=== PATIENT | female | born 1985 | race Caucasian/White ===

== ENCOUNTER 2023-06-02 09:19 | Emergency (ER) | payer OTHER, SELFPAY ==
[2023-06-02 09:42] VITALS: BP 116/86; PULSE 115; RESP 16; TEMP 36.9; O2SAT 100
--- NOTE | 2023-06-02 09:45 | ED.FEMALEGU ---
HPI - Female Genitourinary General Chief complaint: Urogenital-Female Stated complaint: uti Time Seen by Provider: 06/02/23 09:46 Source: patient and RN notes reviewed Mode of arrival: ambulatory Limitations: no limitations History of Present Illness HPI Narrative: 37-year-old female presents with concern for ongoing frequency, urgency. Reports she does finished Macrobid that she was prescribed during a telehealth visit for urinary tract infection. She reports most for symptoms have resolved but she continues to have urgency and frequency. She reports she had some back pain yesterday. She denies abdominal pain, nausea, vomiting, fever, chills. She reports history of frequent UTIs. MD elicited complaint: UTI Related Data Allergies Allergy/AdvReac Type Severity Reaction Status Date / Time No Known Allergies Allergy Verified 06/02/23 09:57 Review of Systems Review of Systems: CONSTITUTIONAL: Denies malaise, chills, sweats, or fever. CARDIOVASCULAR: Denies chest pain, palpitations, or edema. RESPIRATORY: Denies cough or dyspnea. GASTROINTESTINAL: Denies abdominal pain, nausea, vomiting, diarrhea GENITOURINARY: Reports frequency, urgency. Denies dysuria, suprapubic pressure. Denies flank pain or hematuria. SKIN: Denies rash or itching. MUSCULOSKELETAL: Denies back pain or myalgia. All systems reviewed & are unremarkable except as noted in HPI and below PMFSH Comments At time of signature, agree with nursing past medical, surgical, social and family history. There is no relevant family history pertinent to the presenting complaint Exam Narrative: GENERAL: Well-appearing, well-nourished, and in no acute distress. HEAD: Normocephalic. EYES: PERRLA, conjunctivae clear. NECK: Supple. No lymphadenopathy CHEST: Clear to auscultation. No respiratory distress. HEART: Regular rate and rhythm. ABDOMEN: Soft, nontender upon palpation, nondistended, normal active bowel sounds, no palpable or pulsatile masses, no guarding. No CVA tenderness SKIN: Warm, dry, no rash. NEURO: Alert and oriented x3. PSYCH: Normal mood and affect Course Course Emergency Course: Discussed culture ring urine, discussed waiting for culture results to start antibiotic versus start antibiotic pending culture results. Patient would prefer to start antibiotic now and understands she can stop the antibiotic if her culture is negative Patient is aware of, understands and agrees to treatment plan. Anticipatory guidance given. Patient agrees to follow-up as directed and is aware of reasons to seek care at the emergency department. Portions of this record may have been created with voice recognition software Level of Care: Express Care Visit Vital Signs Vital signs: Vital Signs Temperature 98.5 F 06/02/23 09:42 Pulse Rate 115 H 06/02/23 09:42 Respiratory Rate 16 06/02/23 09:42 Blood Pressure 116/86 06/02/23 09:42 Pulse Oximetry 100 06/02/23 09:42 Temperature 98.5 F 06/02/23 09:42 Pulse Rate 115 H 06/02/23 09:42 Respiratory Rate 16 06/02/23 09:42 Blood Pressure 116/86 06/02/23 09:42 Pulse Oximetry 100 06/02/23 09:42 Reviewed. MDM - Female Genitourinary MDM Narrative Medical decision making narrative: Exam findings and UA show no acute concerns or changes; patient is non-toxic appearing and is in no distress. Patient is appropriate for outpatient treatment and follow-up. Differential Diagnosis Differential diagnosis: Likely urinary tract infection and cystitis Critical Care Time Critical Care Time Critical Care Time: No Discharge Plan Discharge Clinical Impression: Symptoms of urinary tract infection Patient Disposition: Home, Self-Care Condition: Stable Instructions: Antibiotic Form, Urinary Tract Infection in Women (ED), Urinary Tract Infection in (ED) Additional Instructions: We will send a urine culture to the lab; if the culture identifies an organism that the prescrib
== END 2023-06-02 10:01 | disposition home or self-care (01) ==
PROVIDERS: Emergency Provider Nurse Practitioner
DX: R35.0 Frequency of micturition (principal); R39.15 Urgency of urination
CPT/HCPCS: 81003; 87086; 99213; G0463